=== PATIENT | female | born 1995 | race Caucasian/White ===

== ENCOUNTER → 2018-08-02 | Outpatient (CLI) | payer OTHER ==
--- NOTE | 2018-08-02 11:57 | Diagnostic Imaging Report ---
INDICATION: survey. TECHNIQUE: Multiple real-time grayscale images were obtained over the gravid uterus. COMPARISON: There are no prior studies available for comparison. FINDINGS: There is a single live fetus in breech presentation. heart motion was noted and a rate of 149 BPM was recorded. There were no abnormalities identified. However, the four-chamber heart view, the kidneys, the cord and cord insertion and the spine were not optimally visualized. A short-term (2-4 week) followup exam would be recommended for further study. The placenta is posterior and there is no previa. The amniotic fluid volume is within normal limits. The growth parameters are fairly uniform. The cervix was not well visualized. IMPRESSION: 1. There is single live fetus in breech presentation approximately 21 weeks gestation + / -1.5 weeks. EDC is 12/13/2018. 2. There were no abnormalities identified but the heart, kidneys, spine and cord were not well imaged. Recommendations as above. 3. The growth parameters are fairly uniform. Biometrical measurements are as follows: Biparietal 4.89 cm, age 20 weeks 6 days. Head circumference 18.77 cm, age 21 weeks 1 days. Abdominal circumference 15.97 cm, age 21 weeks 1 days. Femur length 3.37 cm, age 20 weeks 4 days. Sonographic estimate age: 21 weeks 0 days. Sonographic estimated date of delivery: 12/13/2018. Estimated Weight: 383 gm (+/- 56 gm). LMP percentile: 38%. heart rate: 149 beats per minute. number: 1 of 1. Dictated by: Dictated on workstation # [id number]
== END ==
LOC: RAD 10:02
PROVIDERS: ATTEND Obstetrics & Gynecology
DX: Z36.89 Encounter for other specified antenatal screening (principal); Z3A.21 21 weeks gestation of pregnancy
CPT/HCPCS: 76805

== ENCOUNTER 2018-10-20 21:57 | Outpatient (CLI) | payer OTHER, MEDICAID ==
[~2018-10-20] VITALS: Ht 160 cm; Wt 68.5 kg
--- NOTE | 2018-10-20 22:06 | NUR ---
JAMARI TOBIN presented to unit via ambulation from ED, accompanied by SO, with c/o BLEEDING. JAMARI TOBIN weighed, gowned, voided, and to bed. EFHM and TOCO applied, VS taken. JAMARI TOBIN oriented to bed controls, call light, TV, heat, and A/C controls.
[2018-10-20] MEDS ORDERED: FERR-84 PO (22:10)
[2018-10-20] MEDS ORDERED: PREN-53 PO (22:10)
[2018-10-20 22:21] VITALS: BP 127/74
[2018-10-20 22:27] LABS: BILIRUBIN,URINE NEGATIVE (NEGATIVE); CLARITY,URINE CLEAR; COLOR,URINE YELLOW; GLUCOSE, URINE (UA) NEGATIVE (NEGATIVE); KETONES,URINE NEGATIVE (NEGATIVE); LEUKOCYTE ESTERASE ,URINE 3+ (NEGATIVE); NITRITE,URINE NEGATIVE (NEGATIVE); PH,URINE 7 (5-9); PROTEIN,URINE 1+ (NEGATIVE); UROBILINOGEN,URINE NORMAL (NORMAL)
[2018-10-20] MEDS ORDERED: CEPHALEXIN 250 MG (KEFLEX) CAP PO ONE (23:04)
--- NOTE | 2018-10-20 23:10 | NUR ---
D/C instructions given & explained, pt. verbalized understanding & signed, copy of D/C instructions to pt. Again instructed pt. to call office to move next sched appt up. Kefex 500 mg PO given w/ice water. Pt. left WS ambulatory, escorted by SO & mother, to home via private vehicle.
[2018-10-21 00:03] LABS: BACTERIA,URINE MODERATE /HPF; CALCIUM OXALATE CRYSTALS,UR FEW /LPF
[2018-10-21] MEDS ORDERED: CEPH-507 PO (01:28)
[2018-10-21] MEDS ORDERED: CEPHALEXIN 250 MG (KEFLEX) CAP PO ONE (01:30)
--- NOTE | 2018-10-21 01:31 | NUR ---
Computer downtime from 2230-approx 0030.
--- NOTE | 2018-10-21 08:49 | Physician Query-Final Dx ---
LEENA JOHNSTON 10/21/18 0849: Clinic Account Progress/Dx Physician Query: Please give diagnosis Please remember to include weeks gestation Date of Service Oct 20, 2018 at 21:57 TINO BLACKBURN DO 11/10/18 1309: Clinic Account Progress/Dx DIAGNOSIS: Diagnosis UTI LEENA JOHNSTON Oct 21, 2018 08:49 TINO BLACKBURN DO Nov 10, 2018 13:09
== END 2018-10-20 23:10 | disposition home or self-care (01) ==
LOC: WSo 21:57 → LDRP 21:57 → WSo 23:10
PROVIDERS: ATTEND Obstetrics & Gynecology
DX: O23.40 Unspecified infection of urinary tract in pregnancy, unspecified trimester (principal); Z3A.00 Weeks of gestation of pregnancy not specified
CPT/HCPCS: 81000; 87088; 99212

== ENCOUNTER 2018-12-04 12:56 | Outpatient (CLI) | payer OTHER, MEDICAID ==
[~2018-12-04] VITALS: Ht 160 cm; Wt 71.5 kg
[~2018-12-04 12:56] MED LIST: CEPH-507 PO; FERR-84 PO; PREN-53 PO
--- NOTE | 2018-12-04 13:00 | NUR ---
JAMARI TOBIN presented to unit from ED, accompanied by family, with c/o CONTRACTIONS. JAMARI TOBIN weighed, gowned, voided, and to bed. EFHM and TOCO applied, VS taken. JAMARI TOBIN oriented to bed controls, call light, TV, heat, and A/C controls.
[2018-12-04 13:07] VITALS: BP 129/78
[2018-12-04 13:35] LABS: BILIRUBIN,URINE NEGATIVE (NEGATIVE); CLARITY,URINE CLEAR; COLOR,URINE YELLOW; GLUCOSE, URINE (UA) NEGATIVE (NEGATIVE); KETONES,URINE NEGATIVE (NEGATIVE); LEUKOCYTE ESTERASE ,URINE 3+ (NEGATIVE); NITRITE,URINE NEGATIVE (NEGATIVE); PH,URINE 7 (5-9); PROTEIN,URINE 1+ (NEGATIVE); UROBILINOGEN,URINE NORMAL (NORMAL)
[2018-12-04 13:41] LABS: BACTERIA,URINE NEGATIVE /HPF; WBC,URINE 25-50 /HPF
--- NOTE | 2018-12-04 14:49 | NUR ---
Dr. Overton notified of patient's arrival, complaints, exam, labs, and EFM tracing. New orders received.
[2018-12-04] MEDS ORDERED: PNV11TAB5 PO (15:02)
--- NOTE | 2018-12-04 15:13 | NUR ---
Discharge instructions reviewed with patient both written and verbally. Patient verbalizes understanding and denies any current questions or concerns at this time. Patient requesting flu vaccine prior to dismissal.
[2018-12-04] MEDS ORDERED: FLU QUADRIvalent (5+ YOA) 2019-2020 (AFLURIA) 0.5 ML IM ONE ×2 (15:16→15:30)
--- NOTE | 2018-12-04 15:20 | NUR ---
Flu vaccine administered, see EMAR. VIS sheet provided.
--- NOTE | 2018-12-04 15:25 | NUR ---
Patient discharged at this time and ambulated from the unit accompanied by family. No signs or symptoms of distress noted.
[2018-12-06] MEDS ORDERED: CEPH250C PO (00:45)
--- NOTE | 2018-12-06 08:40 | Physician Query-Final Dx ---
Clinic Account Progress/Dx Physician Query: Please give diagnosis Please include # weeks gestation Date of Service Dec 04, 2018 at 12:56 LEENA JOHNSTON Dec 06, 2018 08:40
[2018-12-06] MEDS ORDERED: IBUP-844 PO (11:34)
[2018-12-06] MEDS ORDERED: Benzocaine/Menthol TP (11:34)
[2018-12-06] MEDS ORDERED: ACHD5005 PO (11:34)
[2018-12-06] MEDS ORDERED: DOCU100C37 PO (11:34)
[2018-12-06] MEDS ORDERED: DIBU30OI TOP (11:34)
== END 2018-12-04 15:25 | disposition home or self-care (01) ==
LOC: LDRP 12:56 → WSo 12:56
PROVIDERS: ATTEND Obstetrics & Gynecology
DX: O62.8 Other abnormalities of forces of labor (principal); Z3A.38 38 weeks gestation of pregnancy
CPT/HCPCS: 81000; 87088; 90471; 99213

== ENCOUNTER 2018-12-05 22:49 | Outpatient (CLI) | payer OTHER, MEDICAID ==
[~2018-12-05] VITALS: Ht 160 cm; Wt 71.7 kg
[~2018-12-05 22:49] MED LIST changes: +PNV11TAB5 PO
--- NOTE | 2018-12-05 22:56 | NUR ---
JAMARI TOBIN presented to unit via ambulation from ED, accompanied by SO, with c/o CONTRACTIONS. JAMARI TOBIN weighed, gowned, voided, and to bed. EFHM and TOCO applied, VS taken. JAMARI TOBIN oriented to bed controls, call light, TV, heat, and A/C controls.
[2018-12-05 23:26] VITALS: BP 133/80
[2018-12-05 23:26] LABS: BILIRUBIN,URINE NEGATIVE (NEGATIVE); CLARITY,URINE SLIGHTLY CLOUDY; COLOR,URINE YELLOW; GLUCOSE, URINE (UA) NEGATIVE (NEGATIVE); KETONES,URINE NEGATIVE (NEGATIVE); LEUKOCYTE ESTERASE ,URINE 3+ (NEGATIVE); NITRITE,URINE NEGATIVE (NEGATIVE); PH,URINE 7 (5-9); PROTEIN,URINE NEGATIVE (NEGATIVE); UROBILINOGEN,URINE NORMAL (NORMAL)
[2018-12-05 23:35] LABS: RBC,URINE 0-2 /HPF; WBC,URINE 50-100 /HPF
[2018-12-05 23:36] LABS: BACTERIA,URINE MODERATE /HPF
--- NOTE | 2018-12-06 00:29 | NUR ---
notified of pt's arrival, sve, exam, and u/a results. new orders received.
[2018-12-06] MEDS ORDERED: CEPHALEXIN 250 MG (KEFLEX) CAP PO ONE ×2 (00:34→00:45)
[2018-12-06] MEDS ORDERED: CEPH250C PO ×2 (00:45)
--- NOTE | 2018-12-06 00:50 | NUR ---
Discharge instructions verbalized understanding. labor precautions given. pt verbalized understanding. pt dc'd home. will follow up in office.
[2018-12-06 01:25] VITALS: BP 133/80
--- NOTE | 2018-12-06 09:05 | Physician Query-Final Dx ---
Clinic Account Progress/Dx Physician Query: Please give diagnosis Please include # weeks gestation Date of Service Dec 05, 2018 at 22:49 LEENA JOHNSTON Dec 06, 2018 09:05
[2018-12-06] MEDS ORDERED: DOCU100C37 PO ×2 (11:34)
[2018-12-06] MEDS ORDERED: ACHD5005 PO ×2 (11:34)
[2018-12-06] MEDS ORDERED: IBUP-844 PO ×2 (11:34)
[2018-12-06] MEDS ORDERED: DIBU30OI TOP ×2 (11:34)
[2018-12-06] MEDS ORDERED: Benzocaine/Menthol TP ×2 (11:34)
== END 2018-12-06 00:50 | disposition home or self-care (01) ==
LOC: WSo 22:49 → LDRP 22:49 → WSo 12-06 00:50
PROVIDERS: ATTEND Obstetrics & Gynecology
DX: O62.8 Other abnormalities of forces of labor (principal); Z3A.38 38 weeks gestation of pregnancy
CPT/HCPCS: 81000; 87088; 99213

== ENCOUNTER 2018-12-06 03:36 | Inpatient (IN) | payer OTHER, MEDICAID ==
[2018-12-06] VITALS (41 sets, daily range): BP systolic 109–140; BP diastolic 59–89
[~2018-12-06] VITALS: Ht 160 cm; Wt 71.7 kg
[~2018-12-06 03:36] MED LIST changes: +CEPH250C PO
[2018-12-06] MEDS ORDERED: D5 LR IV SOLUTION 1,000 ML IV ONE (03:56)
--- NOTE | 2018-12-06 04:00 | NUR ---
Call to Dr Cabral with report, order to change pt to his service and admit to inpt status.
[2018-12-06] MEDS ORDERED: D5 LR IV SOLUTION 1,000 ML IV SCH (04:05)
[2018-12-06] MEDS ORDERED: SUFENTA 0.6MCG/ML BUPIVA 0.125 100 ML ONE (04:21)
[2018-12-06 04:24] LABS: BASOPHILS % (AUTO) 0 % (0-10); EOSINOPHILS # (AUTO) 0.1 10^3/uL (0.0-0.3); EOSINOPHILS % (AUTO) 1 % (0-10); HEMATOCRIT 30 % (35-52); LYMPHOCYTES # (AUTO) 1.4 X 10^3 (1.0-4.0); LYMPHOCYTES % (AUTO) 13 % (12-44); MEAN CORPUSCULAR HEMOGLOBIN 26 PG (25-34); MEAN CORPUSCULAR HGB CONC 33 G/DL (32-36); MEAN CORPUSCULAR VOLUME 77 FL (80-99); MEAN PLATELET VOLUME 10.2 FL (7.4-10.4); MONOCYTES # (AUTO) 0.8 X 10^3 (0.0-1.0); MONOCYTES % (AUTO) 7 % (0-12); NEUTROPHILS # (AUTO) 8.4 X 10^3 (1.8-7.8); NEUTROPHILS % (AUTO) 79 % (42-75); PLATELET COUNT 305 10^3/uL (130-400); RED CELL DISTRIBUTION WIDTH 13.7 % (10.0-14.5); WHITE BLOOD COUNT 10.6 10^3/uL (4.3-11.0)
[2018-12-06] MEDS ORDERED: fentaNYL INJECTION 100 MCG/2 ML AMP ONE (05:07)
[2018-12-06] MEDS ORDERED: BUPIVACAINE 0.25% 30 ML (SENSORCAINE) VIAL ONE (05:07)
[2018-12-06] MEDS ORDERED: LACTATED RINGERS 1,000 ML IV SCH (05:41)
[2018-12-06] MEDS ORDERED: NALOXONE 0.4 MG/ML 1 ML (NARCAN) VIAL IV PRN ×2 (05:45)
[2018-12-06] MEDS ORDERED: EPIDURAL (SUFENTA 0.6MCG/ML BUPIVA 0.125%) 100 ML BAG EPI PRN (05:45)
[2018-12-06] MEDS ORDERED: diphenhydrAMINE 50 MG/ML INJ (BENADRYL) IV PRN (05:45)
[2018-12-06] MEDS ORDERED: ONDANSETRON 4 MG/2 ML (SDV) Z0FRAN IV PRN (05:45)
[2018-12-06] MEDS ORDERED: METOCLOPRAMIDE INJ 10 MG/2 ML (REGLAN) IV PRN (05:45)
[2018-12-06] MEDS ORDERED: CATHETER FLUSH 10 ML SYR IV SCH ×2 (06:00→14:00)
--- NOTE | 2018-12-06 07:26 | History & Physical-OB ---
OB - Chief Complaint & HPI Date/Time Date of Admission: Date of Admission: Dec 06, 2018 at 04:00 Date seen by a Provider: Dec 06, 2018 Time Seen by a Provider: 07:20 Chief Complaint/History OB-Reason for Admission/Chief: Onset of Labor Hx : 1 Hx Para: 0 Expected Date of Delivery: Dec 13, 2018 Gestational Age in Weeks: 39 History of Labs A pos Antibody neg RNI RPR NR HBsAg NR HIV NR GC neg GBS neg Allergies and Home Medications Allergies Coded Allergies: No Known Drug Allergies (Unverified , 10/20/18) Home Medications Cephalexin 250 Mg Capsule, 500 MG PO BID Prescribed by: JAMES BRAN on 12/06/18 0045 Ferrous Sulfate 325 Mg Tablet, 325 MG PO BID, (Reported) [id number]/FA/Omega3/Dha/Fish Oil 1 Each Tab.chew, 2 EACH PO DAILY, (Reported) Patient Home Medication List Home Medication List Reviewed: Yes OB - History Hx of Present Care: Yes Ultrasounds: Normal mid trimester US Obstetrical Complications: None Medical Complications: None Patient Past Medical History n/a Social History/Family History Recent Infectious Disease Expo: No Alcohol Use: Denies Use Recreational Drug Use: No 2nd Hand Smoke Exposure: Yes Immunizations Date of Influenza Vaccine: Dec 04, 2018 OB - Admission Exam Physical Exam Vitals: Vital Signs 12/06/18 12/06/18 05:30 05:46 Temp 37.0 Pulse 64 Resp 18 B/P (MAP) 124/74 (91) Pulse Ox 99 O2 Delivery Room Air HEENT: NCAT Heart: Rhythm Normal Lungs: Clear Abdomen: Gravid Extremities: Normal Reflexes: Normal Cervical Dilatation: 5cm Effacement: 75% Station: -1 Membranes: Intact Amniotic Fluid: Clear Heart Rate: 130's Accelerations: Accelerations Present Decelerations: No Decelerations Short Term Variability: Present Fpc Variability: Average (6-25) Contractions on Admission: 6-10 Minutes Apart Intensity: Mild Labs Laboratory Tests Test 12/06/18 04:00 Range/Units White Blood Count 10.6 4.3-11.0 10^3/uL Red Blood Count 3.91 L 4.35-5.85 10^6/uL Hemoglobin 10.0 L 11.5-16.0 G/DL Hematocrit 30 L 35-52 % Mean Corpuscular Volume 77 L 80-99 FL Mean Corpuscular Hemoglobin 26 25-34 PG Mean Corpuscular Hemoglobin Concent 33 32-36 G/DL Red Cell Distribution Width 13.7 10.0-14.5 % Platelet Count 305 130-400 10^3/uL Mean Platelet Volume 10.2 7.4-10.4 FL Neutrophils (%) (Auto) 79 H 42-75 % Lymphocytes (%) (Auto) 13 12-44 % Monocytes (%) (Auto) 7 0-12 % Eosinophils (%) (Auto) 1 0-10 % Basophils (%) (Auto) 0 0-10 % Neutrophils # (Auto) 8.4 H 1.8-7.8 X 10^3 Lymphocytes # (Auto) 1.4 1.0-4.0 X 10^3 Monocytes # (Auto) 0.8 0.0-1.0 X 10^3 Eosinophils # (Auto) 0.1 0.0-0.3 10^3/uL Basophils # (Auto) 0.0 0.0-0.1 10^3/uL OB - Assessment/Plan/Diagnosis Assessment Assessment: active labor Admission Dx 23 yo @ 39 weeks Active labor GBS neg Admission Status: Inpatient Order (span 2 midnights) Reason for Inpatient Admission: Active labor at term Plan Plan: Expectant Management JEFFREY NICHOLS DO Dec 06, 2018 07:26
[2018-12-06] MEDS ORDERED: OXYTOCIN/NORMAL SALINE 500 ML IV ONE (08:00)
[2018-12-06] MEDS ORDERED: LIDOCAINE/EPI 2% 1:200,00 (XYLOCAINE) 10 ML VIAL ONE (08:00)
--- NOTE | 2018-12-06 08:07 | NUR ---
update was called to in OR #2 r/t SVE.
[2018-12-06] MEDS: OXYTOCIN/NORMAL SALINE 500 ML IV SCH ×2 (11:13→11:44)
[2018-12-06] MEDS ORDERED: BENZOCAINE/MENTHOL (DERMOPLAST) 56 ML CAN TP PRN (11:30)
[2018-12-06] MEDS ORDERED: MEASLES,MUMPS,RUBELLA 1 EA INJ SQ ONE (11:30)
[2018-12-06] MEDS ORDERED: HYDROcodone/APAP 5 MG/325 MG (LORTAB) TAB PO PRN (11:30)
[2018-12-06] MEDS ORDERED: TETANUS,DIPTH,PERTUSS P/F (BOOSTRIX) 0.5 ML VIAL IM ONE (11:30)
[2018-12-06] MEDS ORDERED: DIBUCAINE (NUPERCAINAL) 1% OINT 30 GM TOP PRN (11:30)
[2018-12-06] MEDS ORDERED: WITCH HAZEL(TUCKS) 40 EA JAR TOP PRN (11:30)
--- NOTE | 2018-12-06 11:30 | OB Labor & Delivery Record ---
L&D History Date of Service Date of Service: Dec 06, 2018 History Expected Date of Delivery: Dec 13, 2018 Gestational Age in Weeks: 39 Hx : 1 Hx Para: 0 Complications Events: Routine care Operative Indications (Cesarea: N/A-Vaginal Delivery Intrapartal Events: None L&D Stage1 Stage One Onset of Labor - Date: Dec 06, 2018 Monitors and Tracing Monitor Mode: External Heart Rate: 145 Monitor Accelerations: Uniform Station: +1 Tub Chucker Variability: Average (6-10) Short Term Variability: Present Presentation: Vertex Vital Signs VS - Last 72 Hours, by Label 12/06/18 12/06/18 12/06/18 12/06/18 03:50 04:40 05:10 05:20 Temp 37.0 Pulse 64 79 81 78 Resp 18 18 18 18 B/P (MAP) 132/74 (93) 132/79 (96) 119/73 (88) 117/78 (91) Pulse Ox 99 100 O2 Delivery Room Air Room Air Room Air Room Air 12/06/18 12/06/18 12/06/18 12/06/18 05:25 05:30 05:35 05:40 Pulse 85 88 84 75 Resp 18 18 18 18 B/P (MAP) 122/64 (83) 124/74 (91) 122/74 (90) 109/62 (78) Pulse Ox 100 100 100 100 O2 Delivery Room Air Room Air Room Air Room Air 12/06/18 12/06/18 12/06/18 12/06/18 05:45 05:46 05:51 05:55 Temp 37.0 Pulse 82 64 82 85 Resp 18 18 18 18 B/P (MAP) 120/77 (91) 128/67 (87) 123/69 (87) Pulse Ox 99 99 98 98 O2 Delivery Room Air Room Air Room Air Room Air 12/06/18 12/06/18 12/06/18 12/06/18 06:00 06:05 06:10 06:15 Temp 36.1 Pulse 83 81 80 96 Resp 18 18 18 18 B/P (MAP) 126/76 (93) 132/76 (94) 118/72 (87) 125/71 (89) Pulse Ox 98 98 98 98 O2 Delivery Room Air Room Air Room Air Room Air 10/14/12/06/18 12/06/18 12/06/18 06:20 06:30 06:40 06:50 Pulse 82 85 83 70 Resp 18 18 18 18 B/P (MAP) 120/68 (85) 119/74 (89) 122/73 (89) 119/65 (83) Pulse Ox 98 99 99 98 O2 Delivery Room Air Room Air Room Air Room Air 12/06/18 12/06/18 12/06/18 12/06/18 07:00 07:30 07:45 08:00 Pulse 68 86 74 79 Resp 18 18 18 18 B/P (MAP) 120/65 (83) 129/89 (102) 112/65 (81) 117/74 (88) Pulse Ox 98 99 98 98 O2 Delivery Room Air Room Air Room Air Room Air 12/06/18 12/06/18 08:03 08:15 Temp 36.5 Pulse 81 Resp 18 B/P (MAP) 113/72 (86) Pulse Ox 99 O2 Delivery Room Air Rupture of Membranes Spontaneous Ruture of Membrane: No Amniotic Membrane Rupture Time: 07 Amniotic Membrane Fluid Desc.: Clear Vaginal Bleeding Description: Normal Show Induction/Anesthesia Epidural Cath Placement - Time: 517 Progress/Notes Patient presented in spontaneous labor kyra q 2 min, AROM performed this AM after epidural was placed. She progressed with no further augmentation to complete and +2 station L&D Stage2 Stage Two Stage II Date: Dec 06, 2018 Monitors and Tracing Monitor Mode: External Heart Rate: 145 Monitor Accelerations: Uniform Monitor Decelerations: Variable Shelter Variability: Average (6-10) Short Term Variability: Present Position: Right Occiput Anterior Presentation: Vertex Cord Descript/Complications Cord Vessel Description: 3 Vessels Delivery Type Delivery Method: Spontaneous Vaginal Anterior Shoulder: Right Episiotomy/Perineal Laceration Laceraction(s)/Extensions: Yes Episiotomy Description: Midline Degree (describe repair) midline episiotomy repaired using 3-0 and 2-0 vicryl suture in usual fashion Condition of Infant Delivery 1 minute Comment: 8 5 minute Comment: 9 Notes Live female infant weight 7lbs 11 oz Condition of Condition of Infant: Living Exam: No Observed Abnormalities Resuscitation Resuscitation: N/A - Spontaneous Resp L&D Stage3 Stage Three Stage III Date: Dec 06, 2018 Pictocin Pitocin Administration Comment: 30 mu wide open at delivery of placenta Placenta Delivery Placenta Delivery: Spontaneous Delivery Summary Summary Estimated blood loss (mL): 300 Attending at delivery: Donovna Nichols DO Condition of Delivery Examined: Cervix Examined, Uterus Explored Post Hemorrhage: No Condition of Mother stable Condition of (s) stable DONOVAN NICHOLS DO Dec 06, 2018 11:30 am
--- NOTE | 2018-12-06 11:33 | Discharge Inst-Women's Service ---
Discharge Inst-Women's Serv Depart Medication/Instructions New, Converted or Re-Newed RX: RX on Chart Final Diagnosis PPD 1 NVD Problems Reviewed?: Yes Consults/Follow Up Additional Follow Up: Yes Orders/Referrals Dr. Nichols in 6 weeks Activity Activity: Activity as Tolerated Driving Instructions: No Driving for 1 Week NO SMOKING: NO SMOKING Nothing Inside Vagina: No Douching, No [place], No Tampons Diet Discharge Diet: No Restrictions Symptoms to Report to : Bleeding Excessive, Pain Increased, Fever Over 101 Degrees F, Vaginal Bleeding Increase, Questions/Concerns For Any Problems or Questions: Contact Your Physician JEFFREY NICHOLS DO Dec 06, 2018 11:33 am
[2018-12-06] MEDS ORDERED: DIBU30OI TOP ×2 (11:34)
[2018-12-06] MEDS ORDERED: ACHD5005 PO ×2 (11:34)
[2018-12-06] MEDS ORDERED: IBUP-844 PO ×2 (11:34)
[2018-12-06] MEDS ORDERED: DOCU100C37 PO ×2 (11:34)
[2018-12-06] MEDS ORDERED: Benzocaine/Menthol TP ×2 (11:34)
[2018-12-06] MEDS: IBUPROFEN 600 MG (MOTRIN) TAB PO SCH ×2 (11:44→18:38)
[2018-12-06] MEDS ORDERED: ceFAZolin INJECTION 1,000 MG in WATER (STERILE) FOR INJECTION 10 ML IV NR (11:45)
--- NOTE | 2018-12-06 11:54 | NUR ---
assisted up to BR. + void noted. katherine-care instructions given, returned demonstration.
--- NOTE | 2018-12-06 12:04 | NUR ---
pt ambulated to room 310 with this RN and mother @ side. pt tolerated well.
--- NOTE | 2018-12-06 19:21 | NUR ---
report given to MARCOS Wood.
--- NOTE | 2018-12-06 19:30 | NUR ---
PT UP AMB IN HALLS.
[2018-12-06] MEDS: DOCUSATE SODIUM 100 MG (COLACE) CAP PO SCH (21:20)
--- NOTE | 2018-12-06 21:20 | NUR ---
COMPLETE SHIFT ASSESSMENT DONE. PT SITTING UP EATING TACO BALTAZAR. PT DENIES ANY NEEDS AT THIS TIME. S/O AT SIDE.
--- NOTE | 2018-12-06 22:00 | NUR ---
PT HAS JUST FINISHED PUMPING. PT DENIES ANY NEEDS AT THIS TIME.
[2018-12-07 00:30] VITALS: BP 118/61
--- NOTE | 2018-12-07 00:30 | NUR ---
VS OBTAINED. TEMP ELEVATED. MOTRIN ADMINISTERED.
[2018-12-07] MEDS: IBUPROFEN 600 MG (MOTRIN) TAB PO SCH ×3 (00:37→15:16)
--- NOTE | 2018-12-07 01:40 | NUR ---
TEMP RECHECK AFTER MOTRIN. TEMP HAS CONT TO INCREASE. TYLENOL ADMINISTERED.
[2018-12-07] MEDS ORDERED: ACETAMINOPHEN 500 MG TAB (TYLENOL) PO PRN (01:45)
--- NOTE | 2018-12-07 01:45 | NUR ---
TEMP HAS BEGAN TO DECREASE. WILL CONT TO MONITOR. Addendum: 12/07/18 at 0604 by SON Gillian VICENTE RN INCORRECT TIME. SHOULD BE [id number]
--- NOTE | 2018-12-07 02:45 | NUR ---
TEMP HAS BEGAN TO DECREASE. WILL CONT TO MONITOR.
--- NOTE | 2018-12-07 04:00 | NUR ---
PT RESTING WELL. TEMP HAS RETURNED TO NORMAL. WILL CONT TO MONITOR.
[2018-12-07 06:08] LABS: BASOPHILS % (AUTO) 0 % (0-10); EOSINOPHILS % (AUTO) 0 % (0-10); HEMATOCRIT 26 % (35-52); HEMOGLOBIN 8.6 G/DL (11.5-16.0); LYMPHOCYTES # (AUTO) 0.8 X 10^3 (1.0-4.0); LYMPHOCYTES % (AUTO) 8 % (12-44); MEAN CORPUSCULAR HEMOGLOBIN 26 PG (25-34); MEAN CORPUSCULAR HGB CONC 33 G/DL (32-36); MEAN CORPUSCULAR VOLUME 78 FL (80-99); MEAN PLATELET VOLUME 10.3 FL (7.4-10.4); MONOCYTES # (AUTO) 0.6 X 10^3 (0.0-1.0); MONOCYTES % (AUTO) 6 % (0-12); NEUTROPHILS # (AUTO) 8.3 X 10^3 (1.8-7.8); NEUTROPHILS % (AUTO) 85 % (42-75); PLATELET COUNT 242 10^3/uL (130-400); RED CELL DISTRIBUTION WIDTH 13.5 % (10.0-14.5); WHITE BLOOD COUNT 9.7 10^3/uL (4.3-11.0)
[2018-12-07] MEDS ORDERED: PRENATAL VITAMIN 1 EA TAB PO SCH (07:00)
[2018-12-07] MEDS ORDERED: FERROUS SULF 325 MG (IRON) TAB PO SCH (07:00)
--- NOTE | 2018-12-07 08:02 | Postpartum Progress Note ---
Note Note Day # 1 Subjective: Patient is without complaints. Ambulating, voiding. Tolerating a regular diet without nausea or vomiting. Normal lochia. Pain is well controlled with oral pain medications. Transient fevers throughout the night, but asymptomatic Objective: Physical Exam: General - Alert and oriented, no apparent distress Abdomen - Soft, appropriately tender to palpation, non-distended, fundus firm at umbilicus Extremities - no edema, negative Barbara's bilaterally Assessment: PPD 1 NVD fevers, no leukocytosis Acute blood loss anemia Plan: Routine care. Encourage breast feeding. Encourage ambulation. Ferrous sulfate supplementation. Plan for discharge today or tomorrow pending patient progress. Vitals - Labs Vital Signs - I&O Vital Signs Date Time Temp Pulse Resp B/P (MAP) Pulse Ox O2 Delivery O2 Flow Rate FiO2 12/07/18 04:00 36.7 12/07/18 02:45 38.0 12/07/18 01:40 39.2 12/07/18 01:40 39.2 12/07/18 00:30 37.9 79 20 118/61 (80) 98 Room Air 12/06/18 21:20 37.3 82 18 121/59 (79) 97 Room Air 12/06/18 14:58 37.5 72 18 118/63 (81) 99 Room Air 12/06/18 11:50 89 18 133/65 (87) Room Air 12/06/18 11:38 38.9 12/06/18 11:35 101 18 127/71 (89) Room Air 12/06/18 11:20 90 18 125/64 (84) Room Air 12/06/18 11:10 38.6 12/06/18 11:00 103 18 120/62 (81) Room Air 12/06/18 10:45 38.7 98 18 126/72 (90) Non Rebreather 15.00 12/06/18 10:43 Non Rebreather 15.00 12/06/18 10:30 80 18 123/72 (89) Room Air 12/06/18 10:15 125 18 125/74 (91) Room Air 12/06/18 10:00 85 18 140/79 (99) 100 Room Air 12/06/18 09:45 77 18 126/75 (92) 100 Room Air 12/06/18 09:30 80 18 125/75 (92) 100 Room Air 12/06/18 09:15 75 18 133/83 (100) 99 Room Air 12/06/18 09:00 88 18 124/77 (93) 100 Room Air 12/06/18 08:45 94 18 121/75 (90) 98 Room Air 12/06/18 08:30 94 18 111/77 (88) 99 Room Air 12/06/18 08:15 81 18 113/72 (86) 99 Room Air 12/06/18 08:03 36.5 Labs Laboratory Tests 12/07/18 05:45: White Blood Count 9.7, Red Blood Count 3.37L, Hemoglobin 8.6L, Hematocrit 26L, Mean Corpuscular Volume 78L, Mean Corpuscular Hemoglobin 26, Mean Corpuscular Hemoglobin Concent 33, Red Cell Distribution Width 13.5, Platelet Count 242, Mean Platelet Volume 10.3, Neutrophils (%) (Auto) 85H, Lymphocytes (%) (Auto) 8L , Monocytes (%) (Auto) 6, Eosinophils (%) (Auto) 0, Basophils (%) (Auto) 0, Neutrophils # (Auto) 8.3H, Lymphocytes # (Auto) 0.8L, Monocytes # (Auto) 0.6, Eosinophils # (Auto) 0.0, Basophils # (Auto) 0.0 JEFFREY NICHOLS DO Dec 07, 2018 08:02
--- NOTE | 2018-12-07 08:10 | NUR ---
DR. NICHOLS HERE.
--- NOTE | 2018-12-07 08:16 | NUR ---
PT AND S/O IN THE NURSERY TO SEE INFANT.
[2018-12-07] MEDS: DOCUSATE SODIUM 100 MG (COLACE) CAP PO SCH (09:00)
[2018-12-07] MEDS: CEPHALEXIN 250 MG (KEFLEX) CAP PO SCH ×2 (09:00→13:11)
[2018-12-07 09:03] VITALS: BP 108/58
--- NOTE | 2018-12-07 09:05 | NUR ---
PT AMBULATES BACK TO ROOM FROM NURSERY. PT IN BED. VS OBTAINED. MEDS GIVEN PO; SEE EMAR FOR FURTHER. INITIAL SHIFT ASSESSMENT COMPLETED; SEE INTERVENTION FOR FURTHER. S/O AT THE BEDSIDE. NO NEEDS VOICED.
--- NOTE | 2018-12-07 09:58 | Anesthesia-Regional Post-Op ---
Regional Patient Condition Mental Status: Alert, Oriented x3 Circulation: Same as Pre-Op Headache: Absent Sensation: Full Recovery Motor Block: Absent Post Op Complications Complications None Follow Up Care/Instructions Patient Instructions None needed. Anesthesia/Patient Condition Patient is doing well, no complaints, stable vital signs, no apparent adverse anesthesia problems. No complications reported per nursing. VINAYAK MATOS CRNA Dec 07, 2018 09:58
--- NOTE | 2018-12-07 11:02 | NUR ---
PT AMBULATES SELF OFF FLOOR.
[2018-12-07 13:14] VITALS: BP 116/75
[2018-12-07] MEDS ORDERED: TETANUS,DIPTH,PERTUSS P/F (BOOSTRIX) 0.5 ML VIAL IM ONE (13:46)
[2018-12-07] MEDS ORDERED: MEASLES,MUMPS,RUBELLA 1 EA INJ ONE (13:46)
--- NOTE | 2018-12-07 14:05 | NUR ---
DISCHARGE PAPERS PROVIDED AND REVIEWED WITH PT, PT VERBALIZES UNDERSTANDING AND DENIES ANY QUESTIONS AT THIS TIME. FOLLOW UP APPOINTMENT CARDS AND RX'S ALSO PROVIDED AT THIS TIME. PAPER SIGNED. PREPPING TO GIVEN VACCINES; SEE EMAR FOR FURTHER.
--- NOTE | 2018-12-07 15:09 | NUR ---
[facility] TEAM TO ROOM.
--- NOTE | 2018-12-07 15:30 | NUR ---
PT DISCHARGED FROM -310 TO PERSONAL AUTO VIA AMBULATORY IN STABLE CONDITION ACC BY THIS RN, S/O AND FAMILY.
== END 2018-12-07 15:30 | disposition home or self-care (01) | DRG 806 ==
LOC: WSo 03:36 → LDRP 03:37 → WSo 04:00 → LDRP 04:00
PROVIDERS: ADMIT Obstetrics & Gynecology; ATTEND Obstetrics & Gynecology
PROC: 0W8NXZZ Division of Female Perineum, External Approach (ICD-10-PCS; principal; 2018-12-06)
PROC: 10E0XZZ Delivery of Products of Conception, External Approach (ICD-10-PCS; principal; 2018-12-06)
DX: O99.02 Anemia complicating childbirth (principal); D62 Acute posthemorrhagic anemia; Z37.0 Single live birth; O86.4 Pyrexia of unknown origin following delivery; Z23 Encounter for immunization
CPT/HCPCS: 36415; 85025; 86850; 86900; 86901; 90707; 90715; 99212